=== PATIENT | male | born 1980 | race Caucasian/White ===

== ENCOUNTER 2017-08-24 21:49 | Emergency (ER) | payer OTHER ==
--- NOTE | 2017-08-24 23:14 | ER Document Report ---
HPI - HPI Patient complains to provider of: facial abscess Onset: Yesterday Onset/Duration: Worse Quality of pain: Achy Pain Level: 4 Context: Patient states that he had a pimple on the left side of his face that he attempted to pop and the area has since become inflamed and swollen. Patient states that he did have some purulent drainage expressed from the area. Patient denies any fever. Associated Symptoms: Other - Facial abscess Exacerbated by: Denies Relieved by: Denies Similar symptoms previously: No Recently seen / treated by doctor: No - ROS ROS below otherwise negative: Yes Systems Reviewed and Negative: Yes All other systems reviewed and negative - CONSTITUTIONAL Constitutional: DENIES: Fever - DERM Notes: Abscess Past Medical History - General Information source: Patient - Social History Smoking Status: Current Every Day Smoker Smoking Education Provided: Yes Frequency of alcohol use: None Drug Abuse: None Occupation: [employer] Family History: Reviewed & Not Pertinent - Medical History Medical History: Negative Surgical Hx: Negative Vertical Provider Document - CONSTITUTIONAL Agree With Documented VS: Yes Exam Limitations: No Limitations General Appearance: WD/WN, No Apparent Distress - INFECTION CONTROL TRAVEL OUTSIDE OF THE [place] IN LAST 30 DAYS: No - HEENT HEENT: Atraumatic, Normal ENT Exam, Normocephalic - NECK Neck: Normal Inspection - RESPIRATORY Respiratory: Breath Sounds Normal, No Respiratory Distress - CARDIOVASCULAR Cardiovascular: Regular Rate, Regular Rhythm - BACK Back: Normal Inspection - MUSCULOSKELETAL/EXTREMETIES Musculoskeletal/Extremeties: MAEW - NEURO Level of Consciousness: Awake, Alert, Appropriate Motor/Sensory: No Motor Deficit - DERM Integumentary: Warm, Dry, Abscess - left temporal area Course - Vital Signs Vital signs: Temp Pulse Resp BP Pulse Ox 98.2 F 71 16 155/87 H 97 08/24/17 22:22 08/24/17 22:22 08/24/17 22:22 08/24/17 22:22 08/24/17 22:22 Procedures - Incision and Drainage Left Face Type: Simple Anesthetic type: 1% Lidocaine Blade size: 11 I&D procedure: Betadine prep applied Incision Method: Incision made by scalpel Amount/type of drainage: scant amount of purulent drainage Adult Head Front/Back picture: 1 - abscess Discharge - Discharge Clinical Impression: Facial abscess Condition: Stable Disposition: HOME, SELF-CARE Instructions: Abscess ([facility]), Clindamycin ([facility]), Oral Narcotic Medication ([facility]) , Post Incision and Drainage Additional Instructions: Return immediately for any new or worsening symptoms Followup with your primary care provider, call tomorrow to make a followup appointment Apply warm compresses to face several times each day Prescriptions: Clindamycin HCl [Cleocin Hcl] 300 mg PO QID #28 capsule Naproxen [Naprosyn 250 Nmg Tablet] 1 tab PO BID #14 tablet Forms: Smoking Cessation Education, Return to Work Referrals: [facility] [Provider Group] - Follow up as needed [facility] [Provider Group] - Follow up as needed
[2017-08-24] MEDS ORDERED: CLINDAMYCIN HCL 150 MG CAPSULE PO ONE (23:58)
[2017-08-24] MEDS ORDERED: HYDROCODONE/ACETAMINOPHEN 5-325 MG (6 TAB/ER DISP) PO PRN (23:58)
[2017-08-25 00:35] VITALS: BP 132/92
== END 2017-08-25 00:35 | disposition home or self-care (01) ==
LOC: ER 21:49
PROC: 0H91XZZ Drainage of Face Skin, External Approach (ICD-10-PCS; principal; 2017-08-24)
DX: L02.01 Cutaneous abscess of face (principal); F17.200 Nicotine dependence, unspecified, uncomplicated
CPT/HCPCS: 99283